=== PATIENT | male | born 1990 | race Caucasian/White ===

== ENCOUNTER 2021-01-30 07:47 | Outpatient (REF) | payer MEDICARE, SELFPAY ==
--- NOTE | ~2021-01-30 | XR_ITS ---
EXAMINATION: XR SHOULDER, RIGHT CLINICAL INFORMATION: Pain COMPARISON: Previous x-ray June 2020 TECHNIQUE: 3 views of the right shoulder. FINDINGS: The bones and soft tissues are normal. No fracture. Glenohumeral and acromioclavicular alignment is anatomic with normal joint space. No abnormal soft tissue calcifications. XR/XR shoulder RT min 2V IMPRESSION: Normal right shoulder.
== END 2021-01-30 07:48 | disposition home or self-care (01) ==
LOC: HO.HOSX 07:47
PROVIDERS: Visit Provider Physician Assistant
DX: M77.8 Other enthesopathies, not elsewhere classified (principal); M25.511 Pain in right shoulder
CPT/HCPCS: 20610; 73030; J1040

== ENCOUNTER → 2021-04-03 10:11 | Outpatient (BNVA) | payer OTHER, MEDICARE, MEDICAID, SELFPAY | PROVIDERS: Visit Provider Physician Assistant ==

== ENCOUNTER → 2025-02-14 14:27 | Outpatient (BNVA) | payer OTHER, SELFPAY | PROVIDERS: Visit Provider Physician Assistant Medical | DX: M24.811 Other specific joint derangements of right shoulder, not elsewhere classified (principal); M54.12 Radiculopathy, cervical region; M70.811 Other soft tissue disorders related to use, overuse and pressure, right shoulder | CPT/HCPCS: 99203 ==

== ENCOUNTER → 2025-02-18 13:12 | Outpatient (BNVA) | payer OTHER, SELFPAY | PROVIDERS: Visit Provider Physician Assistant Medical | DX: M24.811 Other specific joint derangements of right shoulder, not elsewhere classified (principal); M70.811 Other soft tissue disorders related to use, overuse and pressure, right shoulder; M54.12 Radiculopathy, cervical region | CPT/HCPCS: 99213 ==

== ENCOUNTER → 2025-02-22 13:56 | Outpatient (BNVA) | payer OTHER, SELFPAY | PROVIDERS: Visit Provider Physician Assistant Medical | DX: M24.811 Other specific joint derangements of right shoulder, not elsewhere classified (principal); M54.12 Radiculopathy, cervical region; M70.811 Other soft tissue disorders related to use, overuse and pressure, right shoulder | CPT/HCPCS: 99213 ==

== ENCOUNTER → 2025-03-01 13:55 | Outpatient (BNVA) | payer OTHER, SELFPAY | PROVIDERS: Visit Provider Physician Assistant Medical | DX: M24.811 Other specific joint derangements of right shoulder, not elsewhere classified (principal); M54.12 Radiculopathy, cervical region; M70.811 Other soft tissue disorders related to use, overuse and pressure, right shoulder | CPT/HCPCS: 99213 ==

== ENCOUNTER → 2025-03-10 10:20 | Outpatient (BNVA) | payer OTHER, SELFPAY | PROVIDERS: Visit Provider Physician Assistant Medical | DX: M24.811 Other specific joint derangements of right shoulder, not elsewhere classified (principal); M70.811 Other soft tissue disorders related to use, overuse and pressure, right shoulder; M54.12 Radiculopathy, cervical region | CPT/HCPCS: 99213 ==

== ENCOUNTER 2025-03-18 19:33 | Outpatient (REF) | payer OTHER, SELFPAY | END 2025-03-18 19:34 | disposition home or self-care (01) | LOC: HO.MRI 19:33 | PROVIDERS: Visit Provider Internal Medicine | DX: Z13.89 Encounter for screening for other disorder (principal) ==

== ENCOUNTER 2025-03-25 17:38 | Outpatient (REF) | payer OTHER, SELFPAY ==
--- NOTE | ~2025-03-25 | MR_ITS ---
EXAMINATION: MR SHOULDER, RIGHT CLINICAL INFORMATION: Right shoulder pain. Radicular pain. COMPARISON: No prior. Right shoulder radiographs 01/30/2021. TECHNIQUE: Multiplanar multisequence MR imaging of the right shoulder was done without IV contrast. Examination performed on a 1.5 Lilian Siemens unit utilizing standard sequences. FINDINGS: Study is somewhat limited due to patient claustrophobia and motion. This limits sensitivity of the scan. Rotator Cuff and Biceps Tendon: Supraspinatus: Difficult to evaluate due to motion. Suspect partial undersurface tearing of the critical zone of the tendon, mid aspect, undermining approximately 50% of the tendinous thickness (series 9, image 14). There is also associated hyperintensity along the bursal surface suggesting fraying. There is no full-thickness tear or tendinous retraction. Normal muscle belly. Infraspinatus: Difficult to evaluate due to motion. Suspect a small medial insertional-type partial tear of the medial footplate attachment (series 9, image 18; series 7, image 23). This measures approximately 4 mm in AP diameter. The remainder of the tendon appears intact without tendinous retraction or full-thickness tearing. Normal muscle belly. Subscapularis: Mild tendinopathy of the insertional fibers. No discrete tear or tendinous retraction. Normal muscle belly. Teres Minor: Intact and normal in signal without discrete tear. Normal muscle belly. Biceps Long Head: Normally located within the bicipital groove. The tendon within the rotator interval appears grossly intact within the confines of motion. AC Joint and Acromiohumeral Arch: Minimal undersurface spurring of the AC joint is present. Mild joint capsular distention with minimal periarticular edema. No definite supraspinatus outlet stenosis. There is a type II acromion. No loss of subacromial space. Glenohumeral Joint and Labrum: Labrum appears intact within the confines of motion artifact. No discrete tear identified. Glenohumeral joint appears grossly normal without significant arthrosis or degenerative change. The glenoid cartilage appears intact within the confines of motion. No subchondral bone plate edema is evident. Osseous Structures: No gross bone marrow edema or infiltrating abnormal signal. Spino-glenoid Notch: Normal. Quadrilateral Space: Normal. Other: Minimal signal in the subacromial/subdeltoid bursa consistent with mild bursitis. The glenohumeral ligaments appear intact without evidence of significant thickening. MR/MR shoulder RT wo con IMPRESSION: Study limited due to extensive motion on numerous pulsing sequences from patient claustrophobia. This limits the sensitivity of the scan. 1. Suspect approximately 50% undersurface tear of the supraspinatus tendon within the critical zone. No full-thickness tear or tendinous retraction. 2. Suspect a 4 mm insertional-type tear of the medial insertional footplate of the infraspinatus tendon. The remainder of the tendon appears intact. 3. Mild tendinopathy of the subscapularis tendon without tearing. 4. The glenoid labrum appears intact grossly. No displaced tear within limitations of the exam. 5. No significant arthropathy of the glenohumeral joint, with cartilage appearing intact. 6. Mild subacromial/subdeltoid bursitis. 7. Very mild undersurface spurring of the AC joint without supraspinatus outlet stenosis. Electronically signed by: Juan Antonio Posye MD 03/28/2025 09:15 AM EDT
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
--- OUTSIDE RECORDS SUMMARY | 2025-03-25 17:40 | XMS_ITS | Clinical Summary ---
Author Organization [employer] Address [address] [facility] [address] [place] [address] Care Team Providers Care Gluing Pressman Name Role Phone Unavailable Primary Care Provider Unavailabl e Social History Tobacco Use Types Packs/Day Years Used Date Smoking Tobacco: Never Assessed Sex and Gender Information Value Date Recorded Sex Assigned at Male 05/06/2024 10:38 AM EDT Legal Sex Male 10:37 AM EDT Gender Identity Male 05/06/2024 10:38 AM EDT Sexual Orientation Straight 05/06/2024 11 :11 AM EDT Plan of Treatment Health Maintenance Due Date Last Done Comments Depression Screening 1992 HIV Screening 1992 SDOH Screening 1992 Alcohol/Substance Use Screening 2004 Tobacco Screening 2004 Family Planning (PISQ) 2007 Hepatitis C Screening 2010 DTaP/Tdap/Td Vaccines (1 - Tdap) 2011 Hepatitis B Vaccines (1 of 3 - 19+ 3-dose series) 2011 COVID-19 Vaccine (1 - 2023-2 5 season) 2024 Influenza Vaccine (#1) 2024 Zoster Vaccines (1 of 2) 2042 RSV Patients and Pa tients Aged 60 years or older (1 - 1-dose 75+ series) 2067 HIB Vaccines Aged Out No longer eligi ble based on patient's age to complete this topic HPV Vaccines Aged Out No longer eligi ble based on patient's age to complete this topic Hepatitis A Vaccines Aged Out No long er eligible based on patient's age to complete this topic IPV Vaccines Aged Out No longer eligi ble based on patient's age to complete this topic Meningococcal Vaccine Aged Out No carlos manuel chika eligible based on patient's age to complete this topic Pneumococcal Vaccine: Pediat rics (0 to 5 Years) and At-Risk Patients (6 to 49) Years) Aged Out No longer eligible b ased on patient's age to complete this topic RSV under 20 months Aged Out No longe r eligible based on patient's age to complete this topic Rotavirus Vaccines Aged Out No longer eligible based on patient's age to complete this topic [place] [address] [address]
== END 2025-03-25 17:39 | disposition home or self-care (01) ==
LOC: HO.MRI 17:38
PROVIDERS: Visit Provider Internal Medicine
DX: M24.811 Other specific joint derangements of right shoulder, not elsewhere classified (principal)
CPT/HCPCS: 73221

== ENCOUNTER → 2025-03-25 17:48 | Outpatient (BNV) | payer OTHER, SELFPAY | PROVIDERS: Visit Provider Radiology Diagnostic Radiology | DX: M25.511 Pain in right shoulder (principal) | CPT/HCPCS: 73221 ==

== ENCOUNTER 2025-04-07 15:00 | Outpatient (RCR) | payer OTHER, SELFPAY ==
--- NOTE | 2025-02-25 09:46 | MHC.PT.EP ---
[facility] [place] Office [place] [facility] [place] Office [address] Karin Godoy [address] [phone] F: [phone] F: [phone] F: [phone] F: [phone] Physical Therapy Plan of Care Date of Evaluation: 02/25/25 Date of Surgery: Diagnosis: This is a 34 yo male presenting to skilled PT with a script for R shoulder tendinitis. Assessment: This is a 34 yo male presenting to skilled PT with a script for R shoulder tendinitis. Patient reports ongoing R shoulder pain now for 2 weeks (OOW since then) however reports on and off symptoms that usually go away in the past (not the case now). He is being followed by [facility] work connection but has not seen ortho yet (returns to work connection on Friday the ). Pain is located anterior shoulder, superior and posterior GHJ. Pain increases with use, during sleep, cooking, cleaning, driving. Pain is constant, but patient has a hard time describing what it feels like. Assessment reveals pain that ranges from up to a 10/10 at the worst. Patient demos decreased R shoulder and cervical ROM, strength of B shoulder's and scaps, TTP at GHJ joint line anterior to posterior, UT and impaired posture with very forward shoulders, forward head and rounded shoulders. Based on functional limitations, impaired QOL and pain tolerance patient is a good candidate for skilled PT 2x/wk for 4wks. Frequency and Duration: The patient will be seen 2x/wk for 4wks Short Term Goals: (In 2 weeks) Demo I with HEP Improve shoulder AROM by at least 10 degs Demo proper scapular recruitment with appropriate shoulder strengthening exercises Snf Goals: (in 4 wks) Improve shoulder nonpainful AROM to almost near equal B Demo at least 1 grade improvement in MMT for shoulder Improve SPADI by at least 10 points Improve overall functional QOL by at least 50% Treatment Plan: Modalities to reduce pain, spasms and effusion. Manual therapy to restore motion and function. Therapeutic exercise to improve strength and flexibility. Neuromuscular re-education for posture and balance. Therapeutic activities to return to functional activities of daily living. Electronically signed by: Miryam Steiner, PT Please sign and return to therapist. Thank you for your referral.
--- NOTE | 2025-05-03 08:32 | MHC.PT.DC ---
[facility] [place] Office [place] Office [place] Office [address] Karin Godoy [address] [phone] F: [phone] F: [phone] F: [phone] F: [phone] Physical Therapy Discharge Report Diagnosis: This is a 34 yo male presenting to skilled PT with a script for R shoulder tendinitis. Date of Surgery: Date of Evaluation: 02/25/25 Date of Discharge: 05/03/25 Treatments to Date: 10 Cancellations to Date: 0 No Shows to Date: 2 Discharge Status: Improved Function Independent with HEP Recommend MD Follow-up Discharge Summary: Patient came to 10 sessions of PT. He made some progress but was continuing with limitations in ROM and pain. He was to see an orthopedic about his next steps. He had an HEP to continue on his own at this time. DC for MD further management. Electronically signed by: Miryam Steiner PT Please sign and return to therapist. Thank you for your referral.
== END 2025-05-03 08:32 | disposition home or self-care (01) ==
LOC: HO.PTCHIC 15:00
PROVIDERS: Visit Provider Physician Assistant Medical
DX: M24.811 Other specific joint derangements of right shoulder, not elsewhere classified (principal); M75.21 Bicipital tendinitis, right shoulder
CPT/HCPCS: 97110; 97140; 97161; 97164